=== PATIENT | male | born 1990 | race Caucasian/White ===

== ENCOUNTER 2022-06-05 05:50 | Day surgery (SDC) | payer SELFPAY ==
[2022-06-05] VITALS (13 sets, daily range): BP systolic 118–136; BP diastolic 63–82; PULSE 72–95; RESP 12–18; TEMP 36.6–36.8; O2SAT 93–99; BMI 32.5
--- NOTE | 2022-06-05 06:04 | CTR_ITS ---
PROCEDURE INFORMATION: Exam: CT Abdomen And Pelvis With Contrast Exam date and time: 06/05/2022 6:21 AM Age: 31 years old Clinical indication: Nausea; Abdominal pain; Localized; Right lower quadrant (rlq); Additional info: Right lower quadrant pain TECHNIQUE: Imaging protocol: Computed tomography of the abdomen and pelvis with contrast. Radiation optimization: All CT scans at this facility use at least one of these dose optimization techniques: automated exposure control; mA and/or kV adjustment per patient size (includes targeted exams where dose is matched to clinical indication); or iterative reconstruction. Contrast material: OMNI 350; Contrast volume: 100 ml; Contrast route: INTRAVENOUS (IV); COMPARISON: No relevant prior studies available. RADIATION DOSE METRICS: Total DLP (mGy-cm): 1063.63 FINDINGS: Lungs: Grossly clear visualized lung bases. Liver: No acute abnormality. No mass. Gallbladder and bile ducts: No acute abnormality. No calcified stones. No ductal dilation. Pancreas: No acute abnormality. No ductal dilation. Spleen: No acute abnormality. Adrenal glands: No acute abnormality. No mass. Kidneys and ureters: No acute abnormality. No hydronephrosis. Stomach and bowel: Nondistended stomach. No significant large or small bowel distention. Appendix: 12 mm diameter dilated enhancing fluid-filled appendix containing small appendicoliths with mild periappendiceal inflammation consistent with acute appendicitis. Intraperitoneal space: No significant fluid collection. No free air. Vasculature: No acute abnormality. No abdominal aortic aneurysm. Lymph nodes: Multiple small right lower quadrant mesenteric lymph nodes. Urinary bladder: Unremarkable as visualized. Reproductive: Unremarkable as visualized. Bones/joints: No acute osseous abnormality. No dislocation. Soft tissues: No significant soft tissue abnormalities. CT/CT abdomen pelvis w con* [id number] IMPRESSION: 12 mm diameter dilated enhancing fluid-filled appendix containing small appendicoliths with mild periappendiceal inflammation consistent with acute appendicitis.
[2022-06-05] MEDS: sodium chloride 0.9% 1,000 ML 999 ML IV (06:11)
[2022-06-05 06:13] LABS: Basophils # 0.1 10^3/uL (0.0-0.1); Basophils % 0.7 %; Eosinophils # 0.2 10^3/uL (0.0-0.8); Eosinophils % 2.7 %; Hemoglobin 16.8 g/dL (11.7-16.6); Mean Corpuscular HGB Conc 32.9 g/dL (30.0-36.0); Mean Corpuscular Hemoglobin 29.8 pg (28.0-34.0); Mean Corpuscular Volume 90.6 fl (80-94); Monocytes # 0.8 10^3/uL (0.2-0.9); Monocytes % 9.4 %; Neutrophils # 4.99 10^3/uL (1.8-7.7); Nucleated Red Blood Cells % 0 %; Platelet Count 287 10^3/cmm (130-400); Red Blood Count 5.63 10^6/uL (4.1-5.3); Red Cell Distribution Width 12.2 % (12.1-15.1); White Blood Count 8.1 10^3/uL (4.0-10.0)
[2022-06-05] MEDS: ondansetron 2 mg/ML SDV 2 mL 4 MG IVP (06:15)
[2022-06-05] MEDS: iohexol 350 mg/mL 500 mL Btl (per mL) IV (06:25)
[2022-06-05 06:32] LABS: Alanine Aminotransferase 67 U/L (0-41); Albumin Level 4.7 g/dL (3.5-5.2); Alkaline Phosphatase 113 U/L (40-130); Anion Gap 12.8 (5-19); Aspartate Amino Transferase 29 U/L (0-40); Blood Urea Nitrogen 13 mg/dL (6-20); C Reactive Protein 23.7 mg/L (0.0-4.9); Calcium 9.4 mg/dL (8.5-10.5); Carbon Dioxide 27 mmol/L (22-29); Chloride 102 mmol/L (98-107); Globulin 3.2 g/dL (1.3-4.6); Glomerular Filtration Rate 78.6 mL/min (90-130); Glucose 105 mg/dL (65-115); Lipase 16 U/L (13-60); Osmolality Calculated 286 mOsm/kg (285-295); Potassium 3.8 mmol/L (3.5-5.1); Sodium 138 mmol/L (136-145); Total Bilirubin 0.8 mg/dL (0.15-1.2); Total Protein 7.9 g/dL (6.6-8.7)
[2022-06-05] MEDS: morphine 4 mg/mL SDV 1 mL IVP (06:45)
--- NOTE | 2022-06-05 07:05 | ED_ITS ---
HPI - Abdominal Pain General: Chief Complaint: Abdominal Pain Stated Complaint: ABD Pain Time Seen by Provider: 06/05/22 06:03 Source: patient Mode of arrival: ambulatory History of Present Illness: 31-year-old male presents emergency room with right lower quadrant pain that began yesterday progressively worsening throughout the day. He has not had any hematochezia melena hematemesis coffee- ground some dysuria urgency or frequency or hematuria localizes the pain to the right lower quadrant loss of appetite with significant nausea. MD elicited complaint: abdominal pain Onset (ago): day(s) (1) Pain Consistency: constant Location: RLQ Severity: severe Quality: stabbing Radiation: none Migration to: no migration Exacerbating factors: movement and other (Palpation) Relieving factors: rest (Remaining still) Associated Symptoms: Reports anorexia, bloating, GI cramping, nausea and poor appetite; Denies belching, change in bowel habits, change in stool character, chills, coffee ground emesis, constipation, diarrhea, dyspepsia, dysuria, excessive flatus, fever(s), heartburn, hematochezia, hematuria, hematemesis, fecal incontinence, loose stools, melena, syncope and vomiting Review of Systems Const: Denies: fever(s), chills, fatigue or malaise ENMT: Denies: throat pain, ear or mastoid pain, nasal discharge or nasal congestion Card: Denies: chest pain, palpitations or syncope Resp: Denies: dyspnea, productive cough or non-productive cough GI: Reports: abdominal pain, nausea, bloating and GI cramping; Denies: vomiting, hematemesis, coffee ground emesis, heartburn, diarrhea, constipation, belching, excessive flatus, fecal incontinence, change in bowel habits, change in stool character, hematochezia or melena : Denies: flank pain, difficulty urinating, dysuria, urinary frequency, urinary urgency or hematuria Skin/Breast: Denies: rash or pruritus PFSH ED PFSH: Medical History (Updated 06/05/22 @ 12:55 by Anupam Lundy DO) No pertinent past medical history Surgical History (Updated 06/05/22 @ 12:55 by Anupam Lundy DO) No pertinent past surgical history Physical Exam Const: COMMON NORMALS: no acute distress GENERAL APPEARANCE: cooperative and comfortable ORIENTATION/CONSCIOUSNESS: Yes awake, Yes oriented to person, Yes oriented to place and Yes oriented to time HENMT: COMMON NORMALS: normocephalic, atraumatic and hearing grossly normal bilaterally HEAD & SCALP: normocephalic and atraumatic Resp: COMMON NORMALS: normal respiratory effort, No retractions, No use of accessory muscles and clear to auscultation bilaterally AUSCULTATION: clear to auscultation bilaterally Cardio: COMMON NORMALS: regular rate, regular rhythm and No murmurs present (Cardio) RATE: regular rate RHYTHM: regular rhythm GI: COMMON NORMALS: No hepatosplenomegaly present AUSCULTATION: Yes normoactive bowel sounds PALPATION: Yes Tenderness to palpation present (GI) Details: RLQ, Yes Guarding due to palpation present (GI) in the RLQ and Yes No hepatosplenomegaly present Extremity: COMMON NORMALS: normal to inspection, capillary refill normal, no clubbing, cyanosis or edema, no calf tenderness and no pedal edema Neuro: SENSORIUM/ORIENTATION: Yes oriented to person, Yes oriented to place and Yes oriented to time Skin: COMMON NORMALS: no rashes or lesions noted GENERAL SKIN EXAM: no rashes or lesions noted Course Vital Signs: Vital signs: Vital Signs Temperature 98.2 F 06/05/22 12:25 Pulse Rate 77 06/05/22 12:25 Respiratory Rate 16 06/05/22 12:25 Blood Pressure 120/67 06/05/22 12:25 Pulse Oximetry 96 06/05/22 12:25 Oxygen Delivery Me thod 06/05/22 12:25 MDM - Abdominal Pain Medical Decision Making White counts normal exam shows exquisite tenderness of the gurneys point CT was read by radiology as being positive for. Acute appendicitis discussed Dr. Dos Santos explained take patient to the OR Medical Records I reviewed the patient's medical records. Lab Data I reviewed the patient's lab results. 06/05/22 06:05 06/05/22 06:05 Labs/Radiology: Radiology Impressions Abdomen/Pelvis CT 06/05/22 06:04 IMPRESSION: 12 mm diameter dilated enhancing fluid-filled appendix containing small appendicoliths with mild periappendiceal inflammation consistent with acute appendicitis. ADDENDUM: 06/05/22 0658 THIS REPORT CONTAINS FINDINGS THAT MAY BE CRITICAL TO PATIENT CARE. The findings were verbally communicated via telephone conference with Dr. Cardoza at 6:56 AM TIME CYCLE OPERATOR on 06/05/2022. The findings were acknowledged and understood. Laboratory Results WBC 8.1 10^3/uL (4.0-10.0) 06/05/22 06:05 RBC 5.63 10^6/uL (4.1-5.3) H 06/05/22 06:05 Hgb 16.8 g/dL (11.7-16.6) H 06/05/22 06:05 Hct 51.0 % (42.0-52.0) 06/05/22 06:05 MCV 90.6 fl (80-94) 06/05/22 06:05 MCH 29.8 pg (28.0-34.0) 06/05/22 06:05 MCHC 32.9 g/dL (30.0-36.0) 06/05/22 06:05 RDW 12.2 % (12.1-15.1) 06/05/22 06:05 Plt Count 287 10^3/cmm (130-400) 06/05/22 06:05 MPV 9.0 fL (7.4-10.4) 06/05/22 06:05 Neut % (Auto) 62.0 % 06/05/22 06:05 Lymph % (Auto) 25.0 % 06/05/22 06:05 [place] % (Auto) 9.4 % 06/05/22 06:05 Eos % (Auto) 2.7 % 06/05/22 06:05 Baso % (Auto) 0.7 % 06/05/22 06:05 Neut # (Auto) 4.99 10^3/uL (1.8-7.7) 06/05/22 06:05 Lymph # (Auto) 2.0 10^3/uL (0.8-4.8) 06/05/22 06:05 [place] # (Auto) 0.8 10^3/uL (0.2-0.9) 06/05/22 06:05 Eos # (Auto) 0.2 10^3/uL (0.0-0.8) 06/05/22 06:05 Baso # (Auto) 0.1 10^3/uL (0.0-0.1) 06/05/22 06:05 Nucleated RBC % (auto) 0 % 06/05/22 06:05 Nucleated RBCs # 0.0 /100WBC 06/05/22 06:05 Sodium 138 mmol/L (136-145) 06/05/22 06:05 Potassium 3.8 mmol/L (3.5-5.1) 06/05/22 06:05 Chloride 102 mmol/L (98-107) 06/05/22 06:05 Carbon Dioxide 27 mmol/L (22-29) 06/05/22 06:05 Anion Gap 12.8 (5-19) 06/05/22 06:05 BUN 13 mg/dL (6-20) 06/05/22 06:05 Creatinine 1.1 mg/dL (0.7-1.2) 06/05/22 06:05 GFR Calculation 78.6 mL/min (90-130) L 06/05/22 06:05 Glucose 105 mg/dL (65-115) 06/05/22 06:05 Calculated Osmolality 286 mOsm/kg (285-295) 06/05/22 06:05 Calcium 9.4 mg/dL (8.5-10.5) 06/05/22 06:05 Total Bilirubin 0.8 mg/dL (0.15-1.2) 06/05/22 06:05 AST 29 U/L (0-40) 06/05/22 06:05 ALT 67 U/L (0-41) H 06/05/22 06:05 Alkaline Phosphatase 113 U/L (40-130) 06/05/22 06:05 C-Reactive Protein 23.7 mg/L (0.0-4.9) H 06/05/22 06:05 Total Protein 7.9 g/dL (6.6-8.7) 06/05/22 06:05 Albumin 4.7 g/dL (3.5-5.2) 06/05/22 06:05 Globulin 3.2 g/dL (1.3-4.6) 06/05/22 06:05 Lipase 16 U/L (13-60) 06/05/22 06:05 Urine Color Avis (Yellow) 06/05/22 08:42 Urine Appearance Clear (CLEAR) 06/05/22 08:42 Urine pH 5 (5-7) 06/05/22 08:42 Ur Specific [place] 1.020 (1.005-1.030) 06/05/22 08:42 Urine Protein Neg (Negative) 06/05/22 08:42 Urine Glucose (UA) Norm (Normal) 06/05/22 08:42 Urine Ketones Negative (Negative) 06/05/22 08:42 Urine Blood Neg (Negative) 06/05/22 08:42 Urine Nitrate Negative (Negative) 06/05/22 08:42 Urine Bilirubin Neg (Negative) 06/05/22 08:42 Urine Urobilinogen Norm mg/dL (Negative) 06/05/22 08:42 Ur Leukocyte Esterase Negative (Negative) 06/05/22 08:42 Discharge Plan Discharge Patient Disposition: Admitted As Inpatient Clinical Impression: Acute appendicitis Condition: Stable Discharge Diet: Advance as tolerated Discharge Activity: Resume usual activity Coding Level of Care Code ED Informatics Physician Liaison for Kelly Cortés
[2022-06-05] MEDS: piperacillin-tazobactam 4.5 GM in sodium chloride 0.9% (plus) 50 ML IV (07:16)
--- NOTE | 2022-06-05 08:52 | PC.NURSE ---
Report given to Marika with surgery, pt taken off floor to surgery
--- NOTE | 2022-06-05 09:59 | PM.HP ---
Providers/Chief Complaint Chief Complaint: ABD Pain History of Present Illness Surinder Hummel is a 31 year old male who presented to the hospital with 1 day history of right lower quadrant abdominal pain. The pain is sharp and constant. Palpation makes pain worse. Nothing makes pain better. Pain does not radiate. He denies any nausea or vomiting. Denies any fever or chills. He has never had pain like this before. He last ate last night. Denies any hematochezia and/or melena. CT was read as acute appendicitis Review of Systems General: Reports: 10 or more systems reviewed and unremarkable except in HPI and below Medications/Allergies Home Medications Medication Instructions Recorded Confirmed Last Taken Type No Known Home Medications 06/05/22 06/05/22 Unknown History Allergies Allergy/AdvReac Type Severity Reaction Status Date / Time No Known Allergies Allergy Verified 06/05/22 08:27 Vitals/I&O/Wt Last Vital Signs Temp 97.9 F 06/05/22 05:55 Pulse 81 06/05/22 08:37 Resp 16 06/05/22 05:55 BP 136/75 06/05/22 08:37 Pulse Ox 96 06/05/22 08:37 O2 Del Method 06/05/22 08:37 06/04/22 06/05/22 06/05/22 22:59 06:59 14:59 Intake Total 1050 / 1050 Balance 1050 / 1050 Weight last 48 hrs Weight 260 lb Physical Exam Narrative: General : Patient is well developed , no acute distress, oriented x3 Head : Normal cephalic, a-traumatic. Ears : Pinnae and external canal are normal. Hearing is normal. Eyes : PERRLA, Sclera and injection are normal. No conjunctival discharge. Nose : Mucous membranes are without erythema. Throat : buccal mucosa is normal, gums are without significant recession or hypertrophy. Lungs : Equal chest rise bilaterally, no use of accessory muscles, trachea is midline. Cor : Rate and rhythm are normal. Abdomen : Soft, ND, right lower quadrant tenderness, negative Rovsing's, no g/r/m Extremities : No edema, no cyanosis or clubbing, dorsalis pedis pulses are present bilaterally, non-tender to palpation of calves. Upper extremities are normal bilaterally. Back : non-tender to palpation, no CVA tenderness. Neuro : CN II - XII intact, Upper and lower extremities have equal and full strength Data 06/05/22 06:05 06/05/22 06:05 A&P Assessment and plan (1) Acute appendicitis: Plan Laparoscopic Appendectomy The risks and benefits of the procedure, including but not limited to, bleeding, infection, scar, numbness, pain, damage to surrounding structures, conversion to an open procedure, were explained to the patient. He is understanding of the risks and wishes to proceed. Attestations Medical Necessity Statement*: Patient would like to go home postoperatively. If it is a straightforward nonperforated appendicitis I will accommodate him. 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 Moo Diagnoses Acute appendicitis K35.80
[2022-06-05 10:16] LABS: Add Urine Microscopic? NO; Charge for UA Resulting for Rev
[2022-06-05 10:21] LABS: Urine Color Amber (Yellow)
[2022-06-05 10:22] LABS: Bilirubin Urine Neg (Negative); Blood Urine Neg (Negative); Glucose Urine UA Norm (Normal); Ketones Urine Negative (Negative); Leukocyte Esterase Urine Negative (Negative); Nitrate Urine Negative (Negative); Protein Urine Neg (Negative); Urine Appearance Clear (CLEAR); Urobilinogen Urine Norm (Negative); pH Urine 5 (5-7)
[2022-06-05] MEDS: sodium chloride 0.9% 1,000 ML 30 ML IV (10:36)
[2022-06-05] MEDS: piperacillin-tazobactam 3.375 GM in sodium chloride 0.9% (plus) 50 ML IV (11:15)
--- NOTE | 2022-06-05 11:44 | P.OP_ITS ---
Operative Report Date of procedure: June 05, 2022 Pre-op diagnosis: Acute appendicitis Post-op diagnosis: same Procedure done: Laparoscopic appendectomy Specimens removed/disposition: Appendix Surgeon: Dr. Salomón Dos Santos DO Anesthesia: General Estimated blood loss (mL): 10 Complications: None apparent Brief History: This is a very pleasant 31-year-old gentleman who came in with a 1 day history of right lower quadrant abdominal pain. He was diagnosed with acute appendicitis. The risks and benefits of the procedure were explained and documented. Procedure: Patient was wheeled into the operative room and placed on the OR table in a supine position. Abdomen was inspected prepped and draped in usual sterile fashion. Time-out was performed and all present were in agreement. A 15 blade scalp was used to make a stab incision in the left upper quadrant and intra- abdominal insufflation was achieved using a Veress needle. After localizing the tissue incisions were made and a 12 millimeter trocar was placed into the umbilicus as well as a 5mm in the right lower quadrant and a 5 mm in the left lower quadrant . The appendix was identified and was mildly inflamed. I used the Voyant to ligate the mesoappendix at the base. 2 clips were placed over the appendiceal artery. I then used 2 PDS endo-loops to snare the base of the appendix. I then used the Voyant to ligate the appendix distally. The appendix was removed from the abdomen using an Endo-Catch bag through the umbilical incision. I examined the abdomen and no further pathology was identified. Hemostasis was noted. I then closed the umbilical site with a Maurice-Kyara and 0 Vicryl suture in a figure of 8 fashion. All ports removed. Skin was washed and dried. Incisions were closed with 4 O Vicryl in a subcuticular interrupted fashion. Skin glue was applied. Patient tolerated the procedure well.
[2022-06-05] MEDS: HYDROmorphone 1 mg/mL INJ 1 mL 0.5 MG IVP (12:35)
--- NOTE | 2022-06-05 12:39 | SUR.PHASEII ---
12:25 RECEIVED PT FROM PACU. MOTHER AT BEDSIDE. 12:30 PT WITH INCREASED ABDOMEN PAIN. SURGICAL SIGHT CLEAN AND DRY. RECEIVED V.O. TO MEDICATE PT.
[2022-06-05] MEDS: HYDROcodone-acetaminophen 7.5-325 mg Tablet 1 TAB PO (13:36)
--- NOTE | 2022-06-05 15:24 | ANE.PACU2 ---
Inpatient post-anesthesia follow up: Airway intact: Yes Vital signs: Temperature 98.2 F Pulse Rate 72 Respiratory Rate 16 Blood Pressure 120/65 Pulse Oximetry 95 Oxygen Delivery Me thod Room Air Oxygen Flow Rate Fraction of Inspir ed Oxygen Hydration adequate: Yes Nausea and vomiting: No Pain level: 4 Mental status: Baseline
--- NOTE | 2022-06-05 15:26 | P.ANESASSM_ITS ---
Pre-Anesthetic Assessment Height/Weight: Height 1.91 m Weight 117.934 kg Temp Pulse Resp BP Pulse Ox O2 Del Method 98.2 F 72 16 120/65 95 06/05/22 14:00 06/05/22 14:00 06/05/22 14:00 06/05/22 14:00 06/05/22 14:00 06/05/22 14:00 Operation Date: 06/05/22 11:40 Proposed Procedures p Laparoscopic Appendectomy(Not Applicable) - Salomón Dos Santos DO Familial anesthetic complications: none Was Beta Gasper taken within 24 hours: N/A Was Clonidine taken within 24 hours: N/A Last intake: Intake Last Liquid Date 06/05/22 Last Liquid Time 19:00 Last Solid Date 06/04/22 Last Solid Time 19:00 Social No alcohol and No tobacco Exam alert, oriented x 3, clear to auscultation bilaterally and regular rate & rhythm Airway Submandibular: within normal limits Cervical ROM: within normal limits Mallampati: Class II Dentition: full Metabolic Morbid Obesity Anesthetic Plan ASA status: 2 Anesthesia: General Medications/Allergies Home Medications Medication Instructions Recorded Confirmed Last Taken Type amoxicillin 875 mg-potassium 1 tab PO BID 10 days #20 tabs 06/05/22 Unknown Rx clavulanate 125 mg tablet hydrocodone 7.5 mg-acetaminophen 1 tab PO Q6H PRN pain #20 tabs 06/05/22 Unknown Rx 325 mg tablet Allergies Allergy/AdvReac Type Severity Reaction Status Date / Time No Known Allergies Allergy Verified 06/05/22 08:27 [facility] Anesthesia Medical History (Updated 06/05/22 @ 12:55 by Anupam Lundy DO) No pertinent past medical history Surgical History (Updated 06/05/22 @ 12:55 by Anupam Lundy DO) No pertinent past surgical history Data Anesthesia 06/05/22 06:05 06/05/22 06:05 Short CBC 06/05/22 Range/Units 06:05 WBC 8.1 (4.0-10.0) 10^3/uL Hgb 16.8 H (11.7-16.6) g/dL Hct 51.0 (42.0-52.0) % MCV 90.6 (80-94) fl Plt Count 287 (130-400) 10^3/cmm Neut % (Auto) 62.0 % Neut # (Auto) 4.99 (1.8-7.7) 10^3/uL BMP 06/05/22 06:05 Sodium 138 Potassium 3.8 Chloride 102 Carbon Dioxide 27 BUN 13 Creatinine 1.1 Glucose 105 Calcium 9.4 Liver Function 06/05/22 Range/Units 06:05 Total Bilirubin 0.8 (0.15-1.2) mg/dL AST 29 (0-40) U/L ALT 67 H (0-41) U/L Alkaline Phosphatase 113 (40-130) U/L Albumin 4.7 (3.5-5.2) g/dL Urine 06/05/22 Range/Units 08:42 Urine Color Avis (Yellow) Urine Appearance Clear (CLEAR) Urine pH 5 (5-7) Ur Specific [place] 1.020 (1.005-1.030) Urine Protein Neg (Negative) Urine Glucose (UA) Norm (Normal) Urine Ketones Negative (Negative) Urine Nitrate Negative (Negative) Urine Bilirubin Neg (Negative) Ur Leukocyte Esterase Negative (Negative) Coags 06/05/22 06:05 C-Reactive Protein 23.7 H Cardiac Studies: No Data to Display
== END 2022-06-05 14:00 | disposition home or self-care (01) ==
LOC: ER 08:58 → OR 09:03 → ER 09:11 → OR 09:11
PROVIDERS: Emergency Medicine; Emergency Provider Family Medicine; Visit Provider Surgery
PROC: 0DTJ4ZZ Resection of Appendix, Percutaneous Endoscopic Approach (ICD-10-PCS; CPT 44970; principal; 2022-06-05 11:20)
DX: K35.33 Acute appendicitis with perforation, localized peritonitis, and gangrene, with abscess (principal)
CPT/HCPCS: 44970; 74177; 80053; 81003; 83690; 85025; 86140; 88304; J1100; J1170; J1885; J2250; J2270; J2405; J2543; J2704; J3010; J3490; J7030; Q9967

== ENCOUNTER 2023-08-01 21:01 | Emergency (ER) | payer SELFPAY ==
--- NOTE | 2023-08-01 21:07 | ECG_ITS ---
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 [email or web address]
[2023-08-01 21:09] VITALS: BP 154/82; PULSE 111; RESP 16; TEMP 36.5; O2SAT 98; BMI 31.5
--- NOTE | 2023-08-01 21:31 | XRR_ITS ---
PROCEDURE INFORMATION: Exam: XR Chest Exam date and time: 08/01/2023 11:02 PM Age: 33 years old Clinical indication: Chest wall pain; Additional info: Chest pain, palpitations TECHNIQUE: Imaging protocol: Radiologic exam of the chest. Views: 1 view. COMPARISON: CT abdomen pelvis w con* [id number] 06/05/2022 6:21 AM FINDINGS: Lungs: Clear, symmetrically inflated lungs. Pleural spaces: No pleural effusion. No pneumothorax. Heart/Mediastinum: Cardiac silhouette is normal in size for technique. Bones/joints: Age appropriate. XR/XR chest 1V portable [id number] IMPRESSION: No acute cardiopulmonary abnormality.
--- NOTE | 2023-08-01 21:40 | W.ED.ARRPALP ---
HPI - Arrhythmia/Palpitations General: Chief Complaint: Arrhythmia/Palpitations Stated Complaint: heart too fast Time Seen by Provider: 08/01/23 21:38 History of Present Illness: 34-[facility] of chest pressure starting about 1 and half hours prior to arrival. Patient reports he was sitting on his couch just watching TV when he started having discomfort in his chest and palpitations. Patient reports noting that his heart rate was really fast for him. He states his heart rate was in the 90s. Patient had talked to a friend thinking it might be anxiety but his symptoms did not resolve. Patient reports that he took a shower without any relief. Patient then called his mom and had her bring him to the ER. Patient recently had a strep infection 1 week ago which she was treated with amoxicillin. Patient is continuing to take amoxicillin. Patient appears nontoxic. Patient appears anxious. Patient appears in mild pain. Patient denies any chronic medical problems. Patient denies any drugs or alcohol. Review of Systems General: Reports: 10 or more systems reviewed and unremarkable except in HPI and below Card: Reports: chest pain [facility] ED PFSH: Medical History (Updated 08/02/23 @ 00:21 by JAYCEE Pizarro) No pertinent past medical history Surgical History (Updated 06/16/22 @ 09:40 by Salomón Dos Santos DO) History of laparoscopic appendectomy No pertinent past surgical history Physical Exam Const: COMMON NORMALS: alert HENMT: COMMON NORMALS: normocephalic HEAD & SCALP: normocephalic Neck/C-Spine: COMMON NORMALS: full ROM Resp: COMMON NORMALS: normal respiratory effort Cardio: COMMON NORMALS: regular rate RATE: regular rate GI: COMMON NORMALS: non-tender Back/Pelvis: COMMON NORMALS: thoracic and lumbar spine normal to inspection Extremity: COMMON NORMALS: normal to inspection Neuro: SENSORIUM/ORIENTATION: Yes alert Skin: COMMON NORMALS: turgor normal GENERAL SKIN EXAM: turgor normal Course Vital Signs: Vital signs: Vital Signs Temperature 97.7 F 08/02/23 00:23 Pulse Rate 84 08/02/23 00:23 Respiratory Rate 16 08/02/23 00:23 Blood Pressure 162/90 08/02/23 00:23 Pulse Oximetry 96 08/02/23 00:23 Oxygen Delivery Me thod Room Air 08/01/23 22:32 MDM - Arrhythmia/Palpitations Medical Decision Making Patient comes in today with complaints of chest pressure and palpitations. Patient appears nontoxic. Patient is recently been treated for a strep infection. Patient's father 3 years earlier from a heart attack. On exam skin is warm and dry color is pink. Respirations are even lungs are clear to auscultation. Vital signs are normal except for some elevated blood pressure. Differential diagnosis includes pericarditis, myocarditis, ACS, anxiety, electrolyte disturbance. CBC and CMP were unremarkable except for some elevated liver enzymes. Chest x-ray was normal. Gallbladder ultrasound was performed due to elevated liver enzymes to rule out gallbladder disease. No evidence of stone or abnormalities are noted on gallbladder, patient did have some mild fatty infiltrates to the liver. Troponin showed no changes at 2 hours. D-dimer is negative. Sed rate and CRP were both negative. I believe the patient's increase in heart rate most likely is due to his recent strep infection without any signs of inflammatory heart disease, ACS or other medical issues at this time. Discussed with patient which he will follow-up with primary care to have a recheck of his blood pressure as he did have some high results today. Patient blood pressure did improve though after administration of 1 mg of Ativan p.o. Patient and mother both reported understanding of care plan and need for follow-up or return to ER. Lab Data 08/01/23 21:45 08/01/23 21:45 Radiology Impressions Chest X-Ray 08/01/23 21:31 IMPRESSION: No acute cardiopulmonary abnormality. Gallbladder Ultrasound 08/01/23 22:22 IMPRESSION: 1. Contracted postprandial gallbladder without evidence of calculus. No findings to suggest acute cholecystitis. 2. Liver is echogenic which is most commonly associated with fatty infiltration. Laboratory Results WBC 8.97 10^3/uL (3.29-11.43) 08/01/23 21:45 RBC 5.15 10^6/uL (3.85-5.65) 08/01/23 21:45 Hgb 15.50 g/dL (11.27-16.99) 08/01/23 21:45 Hct 45.5 % (37-53) 08/01/23 21:45 MCV 88.3 fl (82-101) 08/01/23 21:45 MCH 30.1 pg (27-33) 08/01/23 21:45 MCHC 34.1 g/dL (30-55) 08/01/23 21:45 RDW 12.4 % (12.1-15.1) 08/01/23 21:45 Plt Count 274 10^3/cmm (157-399) 08/01/23 21:45 MPV 8.3 fL (7.4-10.4) 08/01/23 21:45 Neut % (Auto) 69.0 % 08/01/23 21:45 Lymph % (Auto) 19.6 % 08/01/23 21:45 [place] % (Auto) 7.8 % 08/01/23 21:45 Eos % (Auto) 2.6 % 08/01/23 21:45 Baso % (Auto) 0.8 % 08/01/23 21:45 Neut # (Auto) 6.19 10^3/uL (1.8-7.7) 08/01/23 21:45 Lymph # (Auto) 1.8 10^3/uL (0.8-4.8) 08/01/23 21:45 [place] # (Auto) 0.7 10^3/uL (0.2-0.9) 08/01/23 21:45 Eos # (Auto) 0.2 10^3/uL (0.0-0.8) 08/01/23 21:45 Baso # (Auto) 0.1 10^3/uL (0.0-0.1) 08/01/23 21:45 Nucleated RBC % (auto) 0 % 08/01/23 21:45 Nucleated RBCs # 0.0 /100WBC 08/01/23 21:45 ESR 4 mm/hr (0-10) 08/01/23 21:45 D-Dimer 0.33 ug/mLFEU (0-0.59) 08/01/23 21:45 Sodium 139 mmol/L (136-145) 08/01/23 21:45 Potassium 3.7 mmol/L (3.5-5.1) 08/01/23 21:45 Chloride 104 mmol/L (98-107) 08/01/23 21:45 Carbon Dioxide 23 mmol/L (22-29) 08/01/23 21:45 Anion Gap 15.7 (5-19) 08/01/23 21:45 BUN 18 mg/dL (6-20) 08/01/23 21:45 Creatinine 1.0 mg/dL (0.7-1.2) 08/01/23 21:45 GFR Calculation 86.6 mL/min (90-130) L 08/01/23 21:45 Glucose 109 mg/dL (65-115) 08/01/23 21:45 Calculated Osmolality 290 mOsm/kg (285-295) 08/01/23 21:45 Calcium 10.2 mg/dL (8.5-10.5) 08/01/23 21:45 Total Bilirubin 0.5 mg/dL (0.15-1.2) 08/01/23 21:45 AST 46 U/L (0-40) H 08/01/23 21:45 ALT 128 U/L (0-41) H 08/01/23 21:45 Alkaline Phosphatase 125 U/L (40-130) 08/01/23 21:45 Troponin T Baseline < 6 ng/L (0-15) 08/01/23 21:45 Troponin T 120 Minute 6.00 ng/L (0-15) 08/01/23 23:51 Delta Troponin T 0.47632 ABS# (0-10) 08/01/23 23:51 C-Reactive Protein 4.1 mg/L (0.0-4.9) 08/01/23 21:45 Total Protein 7.3 g/dL (6.6-8.7) 08/01/23 21:45 Albumin 4.7 g/dL (3.5-5.2) 08/01/23 21:45 Globulin 2.6 g/dL (1.3-4.6) 08/01/23 21:45 Lipase 20 U/L (13-60) 08/01/23 21:45 All radiology interpretation(s) finalized by discharge Discharge Plan Discharge Patient Disposition: Home Clinical Impression: Palpitations, Blood pressure elevated without history of HTN, Elevated liver enzymes Condition: Stable Prescriptions: No Action acetaminophen [Tylenol Extra Strength] 500 mg tablet 500 mg PO Q6H PRN Discharge Orders: Discharge ED (Routine); Ordered 08/02/23 Ordered By: Philippe Lopez Discharge Diet: Usual diet Discharge Activity: Increase activity as tolerated Patient Instructions: Heart Palpitations (ED), DASH Eating Plan (ED) Activity Restrictions/Additional Instructions: Follow-up with primary care for further evaluation and treatment. Return to ER for new concerns. Coding Level of Care Code ED [employer] for Kelly Cortés
[2023-08-01 21:52] LABS: Basophils # 0.1 10^3/uL (0.0-0.1); Basophils % 0.8 %; Eosinophils # 0.2 10^3/uL (0.0-0.8); Eosinophils % 2.6 %; Erythrocyte Sedimentation Rate 4 mm/hr (0-10); Hematocrit 45.5 % (37-53); Lymphocytes # 1.8 10^3/uL (0.8-4.8); Lymphocytes % 19.6 %; Mean Corpuscular HGB Conc 34.1 g/dL (30-55); Mean Corpuscular Hemoglobin 30.1 pg (27-33); Mean Corpuscular Volume 88.3 fl (82-101); Mean Platelet Volume 8.3 fL (7.4-10.4); Monocytes # 0.7 10^3/uL (0.2-0.9); Monocytes % 7.8 %; Neutrophils # 6.19 10^3/uL (1.8-7.7); Nucleated Red Blood Cells % 0 %; Platelet Count 274 10^3/cmm (157-399); Red Blood Count 5.15 10^6/uL (3.85-5.65); Red Cell Distribution Width 12.4 % (12.1-15.1); White Blood Count 8.97 10^3/uL (3.29-11.43)
[2023-08-01 22:04] LABS: D Dimer 0.33 ug/mLFEU (0-0.59)
[2023-08-01 22:07] LABS: Troponin(5th) Baseline < 6 ng/L (0-15)
[2023-08-01 22:16] LABS: Alanine Aminotransferase 128 U/L (0-41); Albumin Level 4.7 g/dL (3.5-5.2); Alkaline Phosphatase 125 U/L (40-130); Anion Gap 15.7 (5-19); Aspartate Amino Transferase 46 U/L (0-40); Blood Urea Nitrogen 18 mg/dL (6-20); C Reactive Protein 4.1 mg/L (0.0-4.9); Calcium 10.2 mg/dL (8.5-10.5); Carbon Dioxide 23 mmol/L (22-29); Chloride 104 mmol/L (98-107); Globulin 2.6 g/dL (1.3-4.6); Glomerular Filtration Rate 86.6 mL/min (90-130); Glucose 109 mg/dL (65-115); Osmolality Calculated 290 mOsm/kg (285-295); Potassium 3.7 mmol/L (3.5-5.1); Sodium 139 mmol/L (136-145); Total Bilirubin 0.5 mg/dL (0.15-1.2); Total Protein 7.3 g/dL (6.6-8.7)
--- NOTE | 2023-08-01 22:22 | USR_ITS ---
PROCEDURE INFORMATION: Exam: US Abdomen, Limited; Right Upper Quadrant Exam date and time: 08/01/2023 10:33 PM Age: 33 years old Clinical indication: Other: Chest pain; Patient HX: S/P appendectomy 2021; Additional info: Chest pain, elevated liver enzymes TECHNIQUE: Imaging protocol: Real time ultrasound of the abdomen with image documentation. Limited exam focused on the right upper quadrant. COMPARISON: CT abdomen pelvis w con* [id number] 06/05/2022 6:21 AM FINDINGS: Liver: Homogeneous liver is mildly echogenic. Liver measures 15.0 cm in length. No focal liver mass. Gallbladder: Contracted postprandial gallbladder. Gallbladder wall measures 4 mm, but this measurement is not meaningful in the postprandial state. No visible gallstones. Negative sonographic Barcenas sign. Biliary ducts: Common duct measures 4 mm. Pancreas: Visualized pancreas is unremarkable. Right kidney: Normal. No mass. No hydronephrosis. Aorta: Normal caliber abdominal aorta. Portal venous: Antegrade flow in the main portal vein. US/US gall bladder [id number] IMPRESSION: 1. Contracted postprandial gallbladder without evidence of calculus. No findings to suggest acute cholecystitis. 2. Liver is echogenic which is most commonly associated with fatty infiltration.
[2023-08-01 22:32] VITALS: BP 142/91; PULSE 93; RESP 16; O2SAT 98
[2023-08-01] MEDS: LORazepam 1 mg Tablet PO (22:32)
[2023-08-01 22:38] LABS: Lipase 20 U/L (13-60)
--- NOTE | 2023-08-01 23:31 | ECG_ITS ---
[facility] Test Date: 2023-08-02 Pat Name: Surinder Hummel Department: Room: Gender: Male Facing Baster: : 1990 Requested By: Morgan Maldonado Order Number: [id number] Balwinder MD: Junior Keenan M.D. Measurements Intervals [place] Rate: 81 P: 17 WV: 160 QRS: 112 QRSD: 92 T: 7 QT: 372 QTc: 434 Interpretive Statements SINUS RHYTHM WITH SINUS ARRHYTHMIA POSSIBLE RIGHT VENTRICULAR HYPERTROPHY [SOME/ALL OF: PROMINENT R IN V1, LATE TRANSITION, RAD, NICHELLE, SSS] Compared to ECG 08/01/2023 21:07:06 Sinus tachycardia no longer present Electronically Signed On 08-02-2023 11:07:28 BARGE LOADER by Junior Keenan M.D. [email or web address] [id number]
[2023-08-02 00:08] VITALS: BP 162/90; PULSE 84; RESP 16; O2SAT 96
[2023-08-02 00:14] LABS: Troponin 5 2HR Delta 0.00001 ABS# (0-10)
[2023-08-02 00:23] VITALS: BP 162/90; PULSE 84; RESP 16; TEMP 36.5; O2SAT 96
== END 2023-08-02 00:29 | disposition home or self-care (01) ==
PROVIDERS: Emergency Medicine; Emergency Provider Nurse Practitioner Family
DX: R00.2 Palpitations (principal); R03.0 Elevated blood-pressure reading, without diagnosis of hypertension; R74.01 Elevation of levels of liver transaminase levels
CPT/HCPCS: 36415; 71045; 76705; 80053; 83690; 84484; 85025; 85378; 85651; 86140; 93005; 99285

== ENCOUNTER 2024-08-06 06:13 | Outpatient (CLI) | payer OTHER, SELFPAY ==
--- NOTE | 2024-08-06 06:33 | USCV_ITS ---
Surinder Hummel Age: 34 Gender: M : 1990 Exam Date: 08/06/2024 06:41 Ordering Phys: Rony Verma MD Technologist: Exam Location: [facility] [place] Indication: chest pain BP: 130 / 75 HR: 77 Rhythm: Sinus Technical Quality: Adequate MEASUREMENTS (Male / Female) Normal Values 2D ECHO LV Diastolic Diameter PLAX 4.2 cm 4.2 - 5.9 / 3.9 - 5.3 cm IVS Diastolic Thickness 1.2 cm 0.6 - 1.0 / 0.6 - 0.9 cm IVS Systolic Thickness 1.7 cm LVPW Diastolic Thickness 1.2 cm 0.6 - 1.0 / 0.6 - 0.9 cm LVPW Systolic Thickness 1.9 cm LVOT Diameter 1.8 cm LV Ejection Fraction 2D Teich 67.0 % LV Ejection Fraction MOD 4C 68.9 % LV Ejection Fraction MOD 2C 69.8 % LV Ejection Fraction 2C AL 70.5 % LA Diameter 4.4 cm RA Systolic Volume 4C AL 51.1 ml RA Systolic Volume 4C MOD 48.7 ml LA Sys Volume AL 51.2 cm cubed LA Sys Volume Index AL 25.9 cm cubed/m squared Aorta at Sinotubular Diameter 3.0 cm M-MODE LA Ao Ratio MM 1.3 AV Cusp Separation MM 2.4 cm DOPPLER AV Peak Velocity 149.0 cm/s LVOT Peak Velocity 105.0 cm/s AV Area Cont Eq vti 2.6 cm squared AV Area Cont Eq pk 1.9 cm squared MV Peak Velocity 100.0 cm/s MV Area PHT 4.2 cm squared Mitral E to A Ratio 1.3 TR Peak Velocity 170.0 cm/s TR Peak Gradient 11.6 mmHg TV Peak E Velocity 77.0 cm/s PV Peak Velocity 104.0 cm/s FINDINGS Left Ventricle Left ventricle is normal size. LV systolic function is normal with EF of 60-65%. No regional wall motion normalities are seen. Right Ventricle Normal in size and function Right Atrium Normal in size Left Atrium Normal in size Mitral Valve Structurally normal mitral valve. Mild mitral regurgitation. Aortic Valve Structurally normal aortic valve. No significant stenosis or regurgitation Tricuspid Valve Pulmonic Valve Not well visualized Pericardium Normal Aorta Normal in size IVC Not well visualized CONCLUSIONS LV systolic function is normal with EF of 60-65% Mild mitral regurgitation No comparison studies are available. Junior Keenan MD (Electronically Signed) Final Date: 10 August 2024 10:20 S
== END 2024-08-06 06:14 | disposition home or self-care (01) ==
LOC: RAD 06:16
PROVIDERS: Visit Provider Internal Medicine
DX: R00.0 Tachycardia, unspecified (principal)
CPT/HCPCS: 93306